=== PATIENT | male | born 1980 | race Caucasian/White ===

== ENCOUNTER 2021-07-03 17:30 | Emergency (ER) | payer SELFPAY ==
[~2021-07-03] VITALS: Ht 180.3 cm; Wt 79.4 kg
== END 2021-07-03 19:33 | disposition home or self-care (01) ==
LOC: SED 17:30
DX: S53.402A Unspecified sprain of left elbow, initial encounter (principal); S73.102A Unspecified sprain of left hip, initial encounter; V49.49XA Driver injured in collision with other motor vehicles in traffic accident, initial encounter; Y93.89 Activity, other specified; Y92.89 Other specified places as the place of occurrence of the external cause; Y99.8 Other external cause status
CPT/HCPCS: 73502; 99284